=== PATIENT | female | born 1970 | race African-American/Black ===

== ENCOUNTER 2018-07-26 12:20 | Outpatient (CLI) | payer MEDICARE, MEDICAID ==
[~2018-07-26] VITALS: Ht 165.1 cm; Wt 135.2 kg
[2018-07-26 16:01] VITALS: BP 130/84
[2018-07-26] MEDS ORDERED: TOPIRAMATE25 MG ORAL (16:06)
[2018-07-26] MEDS ORDERED: NORVASC5 MG ORAL (16:06)
[2018-07-26] MEDS ORDERED: ASPIRIN EC81 MG ORAL (16:06)
[2018-07-26] MEDS ORDERED: METOPROLOL SUCC25 MG ORAL (16:06)
[2018-07-26] MEDS ORDERED: VITAMIN D1000 UNI1 ORAL (16:06)
[2018-07-26] MEDS ORDERED: prunelax (16:06)
--- NOTE | 2018-07-26 22:45 | Consultation ---
DATE OF CONSULTATION: 07/26/2018 CONSULTING PHYSICIAN: Kevon Lockwood M.D. REFERRING PHYSICIAN: Juan Jose Bourgeois M.D. CHIEF COMPLAINT: Abdominal pain. HISTORY OF PRESENT ILLNESS: This is a very pleasant 47-year-old female with past medical history of obesity, hypertension, and epilepsy, who was referred to us for evaluation of complaint of abdominal pain. The patient states she has chronic GERD symptoms. She is taking gyfp-xyp-zhtuent medications for chronic GERD with minimum response. She has persistent epigastric abdominal pain. She has constipation, which seems to be chronic. No significant weight loss or weight gain. No obvious GI bleeding. PAST MEDICAL HISTORY: 1. Hypertension. 2. Epilepsy. 3. Obesity. 4. Possible IBS. MEDICATIONS: 1. Topamax. 2. Norvasc. 3. Aspirin. 4. Vitamin D. 5. Metoprolol. ALLERGIES: No known drug allergies. FAMILY HISTORY: Father none, but mother had hypertension and coronary artery disease. SOCIAL HISTORY: The patient drinks socially about 3 drinks per week. Denies any IV drug abuse. No tobacco usage. REVIEW OF SYSTEMS: Ten-point review of systems was performed and pertinent positives in the HPI. PHYSICAL EXAMINATION: GENERAL: This is a well-developed female, in no acute distress. VITAL SIGNS: Blood pressure is 130/84, pulse is 82, respirations 20, and temperature 96.8. Height is 5 feet 5 inches and weight is 298. HEENT: Normocephalic and atraumatic. No scleral icterus. NECK: Supple. No obvious evidence of lymphadenopathy. CARDIOVASCULAR: Regular rhythm. Plus S1 and S2. No obvious murmur. LUNGS: Clear to auscultation bilaterally. ABDOMEN: Positive bowel sounds. Soft, nontender. No rebound. No guarding. No peritoneal sign. EXTREMITIES: No cyanosis. No clubbing. No edema. ASSESSMENT: This is a 47-year-old female with complaint of abdominal pain, GERD, constipation, nausea, bloating, and dysphagia. PLAN: The patient was started on MiraLAX 17 g daily and was given sample and prescription. The patient also was told to start PPI for chronic GERD. The patient given her age of 47 and multiple complaints of GERD and constipation, the patient was requested to have an endoscopy and colonoscopy, which we will schedule. The only thing this patient needs is to find a ride for her procedures, so we gave her the instructions for the colonoscopy, the prescription for colonoscopy, and she will call back and make an appointment. I want to thank Dr. Juan Jose Bourgeois for this kind referral. Kevon Maggie Lockwood DR: MICHAEL JOB#: [id number] CC: Juan Jose Bourgeois M.D.; Fax#: [phone]
== END 2018-07-26 14:20 | disposition home or self-care (01) ==
LOC: PAN 12:20
DX: R10.9 Unspecified abdominal pain (principal); K21.9 Gastro-esophageal reflux disease without esophagitis; K59.00 Constipation, unspecified; R11.0 Nausea; R14.0 Abdominal distension (gaseous); R13.10 Dysphagia, unspecified; I10 Essential (primary) hypertension; G40.909 Epilepsy, unspecified, not intractable, without status epilepticus; E66.9 Obesity, unspecified; Z79.82 Long term (current) use of aspirin; Z68.42 Body mass index [BMI] 45.0-49.9, adult
CPT/HCPCS: 99202

== ENCOUNTER 2018-10-05 13:21 | Outpatient (CLI) | payer MEDICARE, MEDICAID ==
[~2018-10-05 13:21] MED LIST: ASPIRIN EC81 MG ORAL; METOPROLOL SUCC25 MG ORAL; NORVASC5 MG ORAL; TOPIRAMATE25 MG ORAL; VITAMIN D1000 UNI1 ORAL; prunelax
--- NOTE | 2018-10-05 14:23 | General Progress Note ---
Assessment/Plan Problem List: (1) GERD (gastroesophageal reflux disease) ICD Codes: K21.9 - Gastro-esophageal reflux disease without esophagitis SNOMED: 209111519 (2) Gastritis ICD Codes: K29.70 - Gastritis, unspecified, without bleeding SNOMED: 1686252 Assessment/Plan: trial of carafate TRC 3 months Subjective ROS Limited/Unobtainable: Yes Allergies: Coded Allergies: No Known Allergies (Unverified , 07/26/18) Objective General Appearance: alert EENT: normal ENT inspection Neck: supple Cardiovascular: normal rate Respiratory/Chest: lungs clear Abdomen: normal bowel sounds, non tender, soft Extremities: non-tender Kevon Lockwood MD October 05, 2018 14:23
== END 2018-10-05 15:21 | disposition home or self-care (01) ==
LOC: PAN 13:21
DX: K21.9 Gastro-esophageal reflux disease without esophagitis (principal); K29.70 Gastritis, unspecified, without bleeding
CPT/HCPCS: 99212